=== PATIENT | male | born 1940 | race Caucasian/White ===

== ENCOUNTER 2017-12-19 13:54 | Emergency (ER) | payer SELFPAY ==
[~2017-12-19] VITALS: Ht 170.2 cm; Wt 57.2 kg
--- NOTE | 2017-12-19 14:00 | NUR ---
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
--- NOTE | 2017-12-19 14:15 | NUR ---
IV removed. Catheter intact and site benign. Pressure and 4x4 applied to site. No bleeding noted.
--- NOTE | 2017-12-19 14:17 | NUR ---
Patient does not wish to proceed with medical care recommended by . Patient given information related to possible complications, up to and including , which could occur as a result of leaving the hospital at this time. Patient verbalizes understanding of risks involved due to leaving against medical advice. Patient has signed AMA form.
[2017-12-19 14:18] VITALS: BP 85/49
== END 2017-12-19 14:20 | disposition left against medical advice (07) ==
LOC: ER 13:57
DX: R55 Syncope and collapse (principal); R42 Dizziness and giddiness; Z95.1 Presence of aortocoronary bypass graft
CPT/HCPCS: A4606; Z7610

== ENCOUNTER 2019-10-24 00:46 | Emergency (ER) | payer OTHER ==
[~2019-10-24] VITALS: Ht 170.2 cm; Wt 57.2 kg
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
--- NOTE | 2019-10-24 01:15 | NUR ---
XRAY AT BEDSIDE
--- NOTE | 2019-10-24 01:28 | NUR ---
PATIENT ON 1L OF NASAL CANNULA
[2019-10-24] MEDS ORDERED: IV NS 0.9% 1,000 ML BAG IV ONE (01:30)
[2019-10-24] MEDS ORDERED: FENTANYL PF 100MCG/2ML AMPUL ONE (01:57)
[2019-10-24] MEDS ORDERED: FENTANYL PF 100MCG/2ML AMPUL IV ONE (02:00)
--- NOTE | 2019-10-24 02:12 | NUR ---
[facility] CALLED.
[2019-10-24 02:13] LABS: BASOPHILS % (AUTO) 0.1 % (0.0-2.0); EOSINOPHILS % (AUTO) 0.2 % (0.0-6.0); HEMATOCRIT 31 % (39-51); HEMOGLOBIN 10.3 g/dL (13.5-17.5); LYMPHOCYTES # (AUTO) 0.1 /CMM (0.8-4.8); LYMPHOCYTES % (AUTO) 1.1 % (20.0-44.0); MEAN CORPUSCULAR HGB CONC 34 g/dl (31.0-36.0); MEAN CORPUSCULAR VOLUME 90 fL (80-96); MONOCYTES # (AUTO) 0.8 /CMM (0.1-1.30); MONOCYTES % (AUTO) 7.7 % (2.0-12.0); NEUTROPHILS % (AUTO) 90.9 % (43.0-81.0); PLATELET COUNT (AUTO) 419 /CMM (150-450); WHITE BLOOD COUNT (AUTO) 9.9 K/uL (4.3-11.0)
[2019-10-24 02:26] LABS: CARBON DIOXIDE 29 mmol/L (21-32); CHLORIDE 93 mmol/L (98-107); CREATININE 0.8 mg/dL (0.6-1.3); GLUCOSE 134 mg/dL (74-106); POTASSIUM 4.3 mmol/L (3.5-5.1); SODIUM SERUM 127 mmol/L (136-145); UREA NITROGEN, BLOOD 13 mg/dL (7-18)
--- NOTE | 2019-10-24 02:31 | NUR ---
MELL YAP SPOKE TO STONE PADMINI YAP REGARDING PT.
[2019-10-24 02:38] LABS: ALANINE AMINOTRANSFERASE 30 U/L (12-78); ALBUMIN 2.8 g/dL (3.4-5.0); ALKALINE PHOSPHATASE 86 U/L (46-116); ASPARTATE AMINOTRANSFERASE 38 U/L (15-37); B-TYPE NATRIURETIC PEPTIDE 1081 PG/ML (0-125); BILIRUBIN,DIRECT 0.3 mg/dL (0.0-0.2); BILIRUBIN,TOTAL 0.7 mg/dL (0.2-1.0); TOTAL PROTEIN, SERUM 6.5 g/dL (6.4-8.2)
--- NOTE | 2019-10-24 04:54 | NUR ---
PATIENT IS ASLEEP. EASILY AROUSED THROUGH VERBAL AND MECHANICAL STIMULI. CONNECTED TO MONITOR. BREATHING EVENLY AND UNLABORED ON ROOM AIR. CALL LIGHT WITHIN REACH.
[2019-10-24 06:36] VITALS: BP 114/48
[2019-10-24] MEDS ORDERED: MORPHINE SULFATE INJ 2 MG/ML DISP.SYRIN IV ONE (07:30)
--- NOTE | 2019-10-24 07:32 | NUR ---
CALL FROM [facility]. PT ACCEPTED TO [facility] ACCEPTING MD IS DR OTT. NUMBER FOR REPORT IS [phone] ETA FOR [facility] [id number]
--- NOTE | 2019-10-24 07:52 | NUR ---
PATIENT RECEIVED RESTING INSIDE ROOM. SLEEPING, AROUSABLE THROUGH VERBAL AND TACTILE STIMULI. WITH ORDER FOR MORPHINE 4MG IV X 1. PATIENT MADE AWARE AND VERBALIZED THAT HE DOES NOT WANT IT AT THE MOMENT. INFORMED THAT PATIENT WILL BE TRANSFERRED TO [place], WITH ETA 0815. PATIENT VERBALIZED UNDERSTANDING. WILL CONTINUE TO MONITOR
--- NOTE | 2019-10-24 08:03 | NUR ---
PLACED CALL TO [facility] [phone] AND GAVE REPORT GIVEN TO TYRA CHAMPAGNE
--- NOTE | 2019-10-24 08:33 | NUR ---
PATIENT TO TRANSFER TO [place]. TRANSFER EDUCATION PROVIDED AND PATIENT VERBALIZED UNDERSTANDING. IMAGING CD PROVIDED TO TRANSPORTATION. PATIENT LEFT UNIT VIA ACLS PROTOCOL, CONNECTED TO TELE TECH. IV ACCESS INTACT AND PATENT. NO ACUTE DISTRESS ON TRANSFER. LEFT UNIT IN STABLE CONDITION. REFUSED TO HAVE MORPHINE IV ORDERED. NO NEW SKIN BREAKDOWN NOTED ON TRASNFER, ALL BELONGINGS WITH PATIENT. MD AWARE OF TRANSFER
== END 2019-10-24 08:36 | disposition short-term general hospital (02) ==
LOC: ER 00:49
DX: S32.491A Other specified fracture of right acetabulum, initial encounter for closed fracture (principal); I50.9 Heart failure, unspecified; Z95.818 Presence of other cardiac implants and grafts; W18.39XA Other fall on same level, initial encounter; Y93.89 Activity, other specified; Y92.89 Other specified places as the place of occurrence of the external cause; Y99.8 Other external cause status
CPT/HCPCS: 36415; 71045; 72192; 73552; 73700; 80048; 80076; 83880; 84484; 85025; 85730; 93005; 96374; 99285; J3010; J7030

== ENCOUNTER 2021-09-03 10:52 | Emergency (ER) | payer OTHER ==
[~2021-09-03] VITALS: Ht 170.2 cm; Wt 51.3 kg
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
--- NOTE | 2021-09-03 11:05 | NUR ---
AT BEDSIDE FOR EVAL
--- NOTE | 2021-09-03 11:05 | NUR ---
AT BEDSIDE FOR EVAL
[2021-09-03] MEDS ORDERED: FUROSEMIDE 20 MG/2 ML VIAL IV ONE (11:30)
[2021-09-03] MEDS ORDERED: FUROSEMIDE 20 MG/2 ML VIAL ONE (11:31)
--- NOTE | 2021-09-03 11:52 | NUR ---
BLOOD COLLECTED AND GIVEN TO LAB. LAC #18G S/L PATENT AND INTACT.
--- NOTE | 2021-09-03 11:52 | NUR ---
BLOOD COLLECTED AND GIVEN TO LAB. LAC #18G S/L PATENT AND INTACT.
--- NOTE | 2021-09-03 11:53 | NUR ---
RN DRAWN LABS, PROCESSING
--- NOTE | 2021-09-03 11:53 | NUR ---
RN DRAWN LABS, PROCESSING
[2021-09-03 12:05] LABS: BASOPHILS % (AUTO) 0.1 % (0.0-2.0); HEMATOCRIT 34 % (39-51); HEMOGLOBIN 11.8 g/dL (13.5-17.5); LYMPHOCYTES % (AUTO) 0.4 % (20.0-44.0); MEAN CORPUSCULAR HGB CONC 35 g/dl (31.0-36.0); MEAN CORPUSCULAR VOLUME 93 fL (80-96); MONOCYTES # (AUTO) 0.5 K/uL (0.1-1.30); MONOCYTES % (AUTO) 3.9 % (2.0-12.0); NEUTROPHILS # (AUTO) 11.1 K/uL (1.8-8.9); NEUTROPHILS % (AUTO) 95.6 % (43.0-81.0); PLATELET COUNT (AUTO) 370 K/uL (150-450); RED BLOOD CELL COUNT(AUTO) 3.62 MIL/uL (4.5-6.0); WHITE BLOOD COUNT (AUTO) 11.6 K/uL (4.3-11.0)
[2021-09-03 12:58] LABS: CALCIUM, SERUM 8.6 mg/dL (8.5-10.1); CARBON DIOXIDE 28 mmol/L (21-32); CHLORIDE 84 mmol/L (98-107); CREATININE 0.9 mg/dL (0.6-1.3); GLUCOSE 86 mg/dL (74-106); POTASSIUM 4.6 mmol/L (3.5-5.1); UREA NITROGEN, BLOOD 20 mg/dL (7-18)
[2021-09-03 13:07] LABS: SODIUM SERUM 120 mmol/L (136-145)
--- NOTE | 2021-09-03 13:24 | NUR ---
CALLED [facility] AND OPENED CASE FOR PT. WAS NOTIFIED OF PT STATUS. NOW WAITING FOR A MD TO CALL BACK TO SPEAK TO DR. TYSON
--- NOTE | 2021-09-03 13:24 | NUR ---
CALLED [facility] AND OPENED CASE FOR PT. WAS NOTIFIED OF PT STATUS. NOW WAITING FOR A MD TO CALL BACK TO SPEAK TO DR. TYSON
--- NOTE | 2021-09-03 13:31 | NUR ---
DR. TRAN (SMOOT) SPEAKING TO DR. CONWAY
--- NOTE | 2021-09-03 13:31 | NUR ---
DR. TRAN (GLASGOW) SPEAKING TO DR. CONWAY
--- NOTE | 2021-09-03 14:02 | NUR ---
COVID SWAB DONE AND SENT TO LAB
--- NOTE | 2021-09-03 14:02 | NUR ---
COVID SWAB DONE AND SENT TO LAB
[2021-09-03 15:24] LABS: MAGNESIUM 2.3 mg/dL (1.8-2.4); PHOSPHORUS 3.3 mg/dL (2.5-4.9)
[2021-09-03 15:35] LABS: THYROID STIMULATING HORMONE 3.719 uIU/mL (0.358-3.74); URIC ACID 4.3 mg/dL (2.6-7.2)
[2021-09-03 18:40] VITALS: BP 121/76
--- NOTE | 2021-09-03 19:26 | NUR ---
THE PATIENT IS ACCEPTED TO [facility] ROOM [address] [place] FOR REPORT CALL [phone] ALS TRANSPO 1948
--- NOTE | 2021-09-03 19:26 | NUR ---
THE PATIENT IS ACCEPTED TO [facility] ROOM [address] [place] FOR REPORT CALL [phone] ALS TRANSPO 1949
--- NOTE | 2021-09-03 19:32 | NUR ---
REPORT GIVEN TO NURSE VINH Bryant FROM [facility]
--- NOTE | 2021-09-03 19:32 | NUR ---
REPORT GIVEN TO NURSE VINH Bryant FROM [facility]
--- NOTE | 2021-09-03 20:18 | NUR ---
REPORT GIVEN TO EMT [facility] . PT TRANSFERRING TO [facility] ROOM 2001. VSS.
--- NOTE | 2021-09-03 20:18 | NUR ---
REPORT GIVEN TO EMT [facility] . PT TRANSFERRING TO [facility] ROOM 2001. VSS.
== END 2021-09-03 22:10 | disposition short-term general hospital (02) ==
LOC: ER 10:55
DX: E87.1 Hypo-osmolality and hyponatremia (principal); I89.0 Lymphedema, not elsewhere classified; Z95.1 Presence of aortocoronary bypass graft; D64.9 Anemia, unspecified; D72.829 Elevated white blood cell count, unspecified; E87.8 Other disorders of electrolyte and fluid balance, not elsewhere classified; R91.8 Other nonspecific abnormal finding of lung field; Z20.822 Contact with and (suspected) exposure to COVID-19
CPT/HCPCS: 36415; 71045; 80048; 82533; 82550; 82553; 83735; 84100; 84443; 84484; 84550; 85025; 87426; 93005; 96374; 99285; C9803; J1940